=== PATIENT | male | born 1980 | race Two or more races ===

== ENCOUNTER 2019-06-12 22:47 | Emergency (ER) | payer SELFPAY ==
[~2019-06-12] VITALS: Ht 170.2 cm; Wt 86.2 kg
[2019-06-12 22:50] VITALS: BP 156/73
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
--- NOTE | 2019-06-12 23:05 | NUR ---
ED Nurse Note: Pt taken to CT in wheelchair.
[2019-06-12] MEDS ORDERED: Tetanus/Diptheria/Pertussis IM ONE (23:15)
[2019-06-12] MEDS ORDERED: Acetaminophen 500mg (ES) tab ORAL ONE (23:15)
--- NOTE | 2019-06-13 00:25 | Diagnostic Imaging Report ---
EXAM: CT Head Without Intravenous Contrast CLINICAL HISTORY: PAIN TECHNIQUE: Axial computed tomography images of the head/brain without intravenous contrast. CTDI is 63 mGy and DLP is 1426 mGy-cm. One or more of the following dose reduction techniques were used: automated exposure control, adjustment of the mA and/or kV according to patient size, use of iterative reconstruction technique. COMPARISON: No relevant prior studies available. FINDINGS: Brain: Unremarkable. No hemorrhage. No significant white matter disease. No edema. Ventricles: Unremarkable. No ventriculomegaly. Bones/joints: Unremarkable. No acute fracture. Soft tissues: Unremarkable. Sinuses: Unremarkable as visualized. No acute sinusitis. Mastoid air cells: Unremarkable as visualized. No mastoid effusion. Other findings: Study is degraded by patient motion. IMPRESSION: No acute abnormality identified on a motion degraded study.
--- NOTE | 2019-06-13 00:41 | Diagnostic Imaging Report ---
EXAM: CT Maxillofacial Without Intravenous Contrast CLINICAL HISTORY: PAIN TECHNIQUE: Axial computed tomography images of the face without intravenous contrast. CTDI is 24 mGy and DLP is 571 mGy-cm. One or more of the following dose reduction techniques were used: automated exposure control, adjustment of the mA and/or kV according to patient size, use of iterative reconstruction technique. COMPARISON: No relevant prior studies available. FINDINGS: Bones/joints: No acute fracture. Soft tissues: Unremarkable. Orbits: Unremarkable. Sinuses: Unremarkable. No air-fluid levels. IMPRESSION: Negative for fracture
--- NOTE | 2019-06-13 01:00 | NUR ---
ED Nurse Note: Pt sleeping in bed at this time. No acute distress noted. Pt lac cleaned and laceration repaired by JEANNE.
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
[2019-06-13 03:15] VITALS: BP 139/80
--- NOTE | 2019-06-13 03:15 | NUR ---
ER DISCHARGE NOTE: Patient is cleared to be discharged per ERMD, pt is aox4, on room air, with stable vital signs. pt was given dc and prescription instructions, pt was able to verbalize understanding. pt is able to ambulate with steady gait. pt took all belongings.
== END 2019-06-13 03:15 | disposition home or self-care (01) ==
LOC: EDBD 22:47 → EMR 23:30
DX: S09.90XA Unspecified injury of head, initial encounter (principal); S01.81XA Laceration without foreign body of other part of head, initial encounter; Y04.8XXA Assault by other bodily force, initial encounter; Y92.9 Unspecified place or not applicable; Z23 Encounter for immunization
CPT/HCPCS: 70450; 70486; 90471; 90715; 99284

== ENCOUNTER 2019-06-19 07:12 | Emergency (ER) | payer OTHER ==
[~2019-06-19] VITALS: Ht 165.1 cm; Wt 82.6 kg
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
[2019-06-19 07:24] VITALS: BP 135/90
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
--- NOTE | 2019-06-19 07:51 | NUR ---
ED Nurse Note: Pt back from CT
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
--- NOTE | 2019-06-19 08:35 | Diagnostic Imaging Report ---
EXAM: CT Maxillofacial Without Intravenous Contrast CLINICAL HISTORY: TRAUMA TECHNIQUE: Axial computed tomography images of the face without intravenous contrast. CTDI is 24 mGy and DLP is 492.10 mGy-cm. One or more of the following dose reduction techniques were used: automated exposure control, adjustment of the mA and/or kV according to patient size, use of iterative reconstruction technique. Coronal reformatted images were created and reviewed. COMPARISON: No relevant prior studies available. FINDINGS: Bones/joints: No visible fractures in the facial bones, nasal bones, maxilla, or mandible. Soft tissues: Soft tissue swelling and subcutaneous stranding overlying the left maxillary and mandible, associated with a 2.0 x 1.8 x 1.0 cm subcutaneous hematoma. Orbits: Unremarkable. Bony orbits appear intact. Bilateral globes and intraconal soft tissues appear unremarkable. Sinuses: Unremarkable. No air-fluid levels. IMPRESSION: 1. Soft tissue swelling overlying the left maxillary and mandible, associated with a 2.0 x 1.8 x 1.0 cm subcutaneous hematoma. 2. No facial bone fractures identified.
[2019-06-19] MEDS ORDERED: IBUPROFEN600 MG ORAL (08:57)
[2019-06-19] MEDS ORDERED: CEPHALEXIN500 MG ORAL (08:57)
--- NOTE | 2019-06-19 09:00 | NUR ---
ER DISCHARGE NOTE: Patient is cleared to be discharged per ERMD, pt is aox4, on room air, with stable vital signs. pt was given dc and prescription instructions, pt was able to verbalize understanding, pt id band removed. pt is able to ambulate with steady gait. pt took all belongings.
[2019-06-19 09:32] VITALS: BP 139/92
== END 2019-06-19 09:00 | disposition home or self-care (01) ==
LOC: EMR 07:30
DX: S00.83XA Contusion of other part of head, initial encounter (principal); S00.03XA Contusion of scalp, initial encounter; S00.531A Contusion of lip, initial encounter; Y04.8XXA Assault by other bodily force, initial encounter; Y93.9 Activity, unspecified; Y92.9 Unspecified place or not applicable; Z88.0 Allergy status to penicillin
CPT/HCPCS: 70450; 70486; 99284

== ENCOUNTER 2019-06-24 12:28 | Emergency (ER) | payer OTHER ==
[~2019-06-24] VITALS: Ht 157.5 cm; Wt 82.6 kg
[~2019-06-24 12:28] MED LIST: CEPHALEXIN500 MG ORAL; IBUPROFEN600 MG ORAL
[2019-06-24 12:31] VITALS: BP 138/81
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
--- NOTE | 2019-06-24 12:58 | NUR ---
ER DISCHARGE NOTE: Patient is cleared to be discharged per ERMD. Patient is awake, alert, oriented x 4. D/C instruction given and patient verbalized understanding of it. Patient ambulated out with steady gait with all his belongings.
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
== END 2019-06-24 12:59 | disposition home or self-care (01) ==
LOC: EMR 12:45
DX: S00.83XA Contusion of other part of head, initial encounter (principal); X58.XXXA Exposure to other specified factors, initial encounter; Y93.9 Activity, unspecified; Y92.9 Unspecified place or not applicable; Z88.0 Allergy status to penicillin
CPT/HCPCS: 99282